=== PATIENT | female | born 2005 | race Asian ===

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

== ENCOUNTER 2024-04-06 20:01 | Day surgery (SDC) | payer OTHER ==
[2024-04-06] MEDS ORDERED: Lactated Ringer's 1,000 ML IV SCH (20:30)
[2024-04-06 20:33] VITALS: BMI 28.3
[2024-04-06 20:51] LABS: #Basophils 0.04 10x3/uL (0.0-0.2); #Eosinophils 0.24 10x3/uL (0.0-0.5); #Monocytes 0.83 10x3/uL (0.0-1.1); #Neutrophils 10.34 10x3/uL (1.5-8.4); %Basophils 0.3 % (0.0-2.0); %Eosinophils 1.9 % (0.0-6.0); %Lymphocytes 10.4 % (18.0-47.0); %Monocytes 6.5 % (0.0-10.0); %Neutrophils 80.4 % (40.0-75.0); Hematocrit 29.6 % (34.9-44.5); Hemoglobin 9.8 g/dL (12.0-15.5); Mean Corpuscular HGB CONC 33.1 g/dL (32.0-36.0); Mean Corpuscular Hemoglobin 25.8 pg (27.0-33.0); Mean Corpuscular Volume 77.9 fL (81.6-98.3); Mean Platelet Volume 9.7 fL (7.4-10.4); Platelet Count 326 10x3/uL (150-450); RBC Distribution Width 14.3 % (11.5-14.5); White Blood Cell (WBC) Count 12.85 10x3/uL (3.5-10.5)
== END 2024-04-06 21:35 | disposition home or self-care (01) ==
LOC: CSHLD/OP 20:01
PROVIDERS: ATTEND Obstetrics & Gynecology
DX: O36.8130 Decreased fetal movements, third trimester, not applicable or unspecified (principal); O47.03 False labor before 37 completed weeks of gestation, third trimester; O99.513 Diseases of the respiratory system complicating pregnancy, third trimester; J06.9 Acute upper respiratory infection, unspecified; Z3A.35 35 weeks gestation of pregnancy; Z79.899 Other long term (current) drug therapy
CPT/HCPCS: 85025; 87428

== ENCOUNTER 2024-04-17 11:25 | Day surgery (SDC) | payer OTHER ==
[2024-04-17 11:55] VITALS: BMI 28.3
[2024-04-17 12:49] LABS: Bilirubin Neg (Negative); Blood, Urine Negative (Negative); Clarity Clear (Clear); Glucose, Urine (Dipstick) Normal (Negative); Ketone, Urine 15 mg/dL (Negative); Leukocyte 100 (Negative); Nitrite Negative (Negative); Protein, Urine (Dipstick) 30 mg/dl (Neg-Trace); Specific Gravity, Urine 1.015 (1.005-1.030); Urobilinogen Normal mg/dL (Less than 2)
[2024-04-17 12:58] LABS: Bacteria/HPF 2+ HPF (None Seen); CAUTI Indications for Culture Pelvic or flank pain; RBC/HPF 0-3 HPF (0-3)
[2024-04-17 12:59] LABS: Urine Culture Reflex No No
== END 2024-04-17 13:35 | disposition home or self-care (01) ==
LOC: CSHLD/OP 11:25
PROVIDERS: ATTEND Obstetrics & Gynecology
DX: O23.43 Unspecified infection of urinary tract in pregnancy, third trimester (principal); O47.1 False labor at or after 37 completed weeks of gestation; Z3A.37 37 weeks gestation of pregnancy; Z79.899 Other long term (current) drug therapy
CPT/HCPCS: 81001; 99283

== ENCOUNTER 2025-01-28 20:26 | Emergency (ER) | payer OTHER ==
[2025-01-28 22:20] LABS: Glucose, Urine (Dipstick) Normal (Negative); Leukocyte 25 (Negative); Protein, Urine (Dipstick) Negative (Neg-Trace); Specific Gravity, Urine 1.010 (1.005-1.030)
[2025-01-28 22:21] LABS: Pregnancy Test - Urine (BHCG) POSITIVE (Negative); Pregu Control Background? CLEAR/WHITE (CLR/WHITE); Pregu Control Bar Appear? YES (CONTROL BAR)
[2025-01-28 22:36] LABS: Bacteria/HPF Rare-Few HPF (None Seen); CAUTI Indications for Culture Pregnancy; RBC/HPF 0-3 HPF (0-3); WBC/HPF 0-3 HPF (0-3)
[2025-01-28 22:37] LABS: Urine Culture Reflex Yes Yes
== END 2025-01-28 23:08 ==
LOC: CSHERS 20:26
DX: O20.0 Threatened abortion (principal); O20.8 Other hemorrhage in early pregnancy; Z3A.01 Less than 8 weeks gestation of pregnancy
CPT/HCPCS: 76856; 81001; 81025; 84702; 86900; 86901; 87086

== ENCOUNTER 2025-01-30 09:09 | Emergency (ER) | payer OTHER ==
[2025-01-30 09:49] LABS: #Basophils 0.03 10x3/uL (0.0-0.2); #Eosinophils 0.21 10x3/uL (0.0-0.5); #Monocytes 0.56 10x3/uL (0.0-1.1); #Neutrophils 4.70 10x3/uL (1.5-8.4); %Basophils 0.4 % (0.0-2.0); %Eosinophils 2.7 % (0.0-6.0); %Lymphocytes 27.9 % (18.0-47.0); %Monocytes 7.3 % (0.0-10.0); %Neutrophils 61.4 % (40.0-75.0); Hematocrit 36.0 % (34.9-44.5); Hemoglobin 11.6 g/dL (12.0-15.5); Mean Corpuscular Hemoglobin 27.4 pg (27.0-33.0); Mean Corpuscular Volume 85.1 fL (81.6-98.3); Platelet Count 346 10x3/uL (150-450); Red Blood Cell (RBC) Count 4.23 10x6/uL (3.90-5.03); White Blood Cell (WBC) Count 7.66 10x3/uL (3.5-10.5)
[2025-01-30 10:04] LABS: ALT (SGPT) Less than 7 U/L (Less than 34); AST (SGOT) 24 U/L (11-34); Albumin 4.3 g/dL (3.1-4.5); Alkaline Phosphatase 44 U/L (40-110); Anion Gap 12 mmol/L (10-20); BUN (Urea Nitrogen) 7 mg/dL (7.0-18.7); Bilirubin, Total 0.2 mg/dL (0.3-1.2); Calc. Creatinine Clearance 0 mL/min (70-130); Calcium 9.0 mg/dL (7.8-10.44); Carbon Dioxide 22 mmol/L (22-29); Chloride 110 mmol/L (98-107); Globulin 2.9 g/dL (2.4-3.5); Glucose 91 mg/dL (70-105); Potassium 4.5 mmol/L (3.5-5.1); Sodium 139 mmol/L (136-145)
[2025-01-30] MEDS ORDERED: Acetaminophen 500 MG TAB ONE (10:53)
== END 2025-01-30 12:48 | disposition home or self-care (01) ==
LOC: CSHERS 09:09
DX: O03.9 Complete or unspecified spontaneous abortion without complication (principal)
CPT/HCPCS: 36415; 76856; 80053; 84702; 85025; 86900; 86901; 93976; Q0162